=== PATIENT | male | born 1980 | race Caucasian/White ===

== ENCOUNTER 2018-08-19 17:07 | Emergency (ER) | payer BC ==
[~2018-08-19] VITALS: Ht 172.7 cm; Wt 83.9 kg
[2018-08-19] MEDS ORDERED: cefTRIAXone 1GM/50ML D5W 50 ML IV ONE (19:15)
[2018-08-19] MEDS ORDERED: TETANUS-DIPTH-ACEL PERTUSSIS 0.5ML SYRG IM ONE (19:15)
[2018-08-19 22:52] VITALS: BP 134/86
[2018-08-19] MEDS ORDERED: LIDOCAINE 2% (LOCAL ANESTH.) PF 5ml SDV ONE ×2 (23:06→23:39)
[2018-08-20] MEDS ORDERED: HYDROcodone-ACET 10/325MG TAB ONE (00:35)
[2018-08-20] MEDS ORDERED: HYDROcodone-ACET 10/325MG TAB PO ONE (01:00)
== END 2018-08-20 01:10 | disposition home or self-care (01) ==
LOC: ER 17:16
DX: S61.317A Laceration without foreign body of left little finger with damage to nail, initial encounter (principal); W26.9XXA Contact with unspecified sharp object(s), initial encounter; Y93.89 Activity, other specified; Y99.0 Civilian activity done for income or pay; Y92.69 Other specified industrial and construction area as the place of occurrence of the external cause
CPT/HCPCS: 12001; 73130; 90471; 90715; 96365; 99283; J0696; J2001